=== PATIENT | male | born 1985 | race Caucasian/White ===

== ENCOUNTER 2022-03-29 14:10 | Emergency (ER) | payer OTHER, SELFPAY ==
[2022-03-29 14:12] VITALS: BP 131/76; PULSE 86; RESP 16; TEMP 36.3; O2SAT 98
--- NOTE | 2022-03-29 15:48 | ED.GENADULT ---
HPI - General Adult General Chief complaint: Eye Problems Stated complaint: foreign body in right eye Time Seen by Provider: 03/29/22 14:35 History of Present Illness HPI narrative: this is a 37-year-old male presenting to ED with eye irritation. Patient was scraping on his barbecue grill earlier today and afterwards used a leaf blower to clean out his garage. While he was using a leaf blower he felt something enter his right eye. Since then he has had some irritation. He sees a foreign body in the mirror. He denies any pain. Related Data Allergies Allergy/AdvReac Type Severity Reaction Status Date / Time peanut Allergy Severe Rash Verified 03/29/22 14:11 Review of Systems Review of Systems: CONSTITUTIONAL: Denies night sweats. EYES: No eye pain ENT: Denies rhinorrhea CARDIOVASCULAR: Denies palpitations RESPIRATORY: Denies hemoptysis GASTROINTESTINAL: Denies hematemesis GENITOURINARY: Denies hematuria. SKIN: Denies rash MUSCULOSKELETAL: Denies myalgia. NEUROLOGIC: Denies weakness. PSYCHIATRIC: Denies delusions [facility] Social History Social History Smoking status: Never smoker Alcohol intake: current Exam Narrative: APPEARANCE: No apparent distress. Head atraumatic. EYES: PERRLA/EOMI, Right eye has a small foreign body at 11:00 a.m. from the pupil. No visible rust ring. NOSE: Normal no drainage NECK: Supple, Trachea midline RESPIRATORY: CTAB, No increased work of breathing. CARDIOVASCULAR: S1S2 appreciated ABDOMINAL: Soft, nontender, nondistended, MUSCULOSKELETAl: No obvious deformities NEURO: Alert. Moving 4/4 extremities SKIN:: Warm, dry. Normal color PSYCHIATRIC: Normal affect Course Vital Signs Vital signs: Vital Signs Temperature 97.4 F L 03/29/22 14:12 Pulse Rate 86 03/29/22 14:12 Respiratory Rate 16 03/29/22 14:12 Blood Pressure 131/76 03/29/22 14:12 Pulse Oximetry 98 03/29/22 14:12 Oxygen Delivery Room Air 03/29/22 14:12 Temperature 97.4 F L 03/29/22 14:12 Pulse Rate 86 03/29/22 14:12 Respiratory Rate 16 03/29/22 14:12 Blood Pressure 131/76 03/29/22 14:12 Pulse Oximetry 98 03/29/22 14:12 Oxygen Delivery Room Air 03/29/22 14:12 Procedures FB Removal Eye Foreign Body #1: Foreign Body Removal Time: 15:50 Time Out performed: Yes Location: eye (R) Topical anesthetic used: tetracaine Foreign body: metal Evidence of corneal penetration: No Technique: cotton tip swab and needle Post-procedure medication: ophthalmic antibiotic and topical anesthetic Patient tolerated procedure: well and no complications Medical Decision Making MDM Narrative Medical decision making narrative: this is a 37-year-old male presenting ED with a foreign body in his right eye. Tetracaine was applied in the foreign body was removed via 18 gauge needle. Patient will be given Monclova for pain control. Given prescriptions for Motrin, Tylenol and Ocuflox. Patient has been instructed to follow up with [facility] in 48 hours. Vital Signs Vital Signs: Vital Signs Temperature 97.4 F L 03/29/22 14:12 Pulse Rate 86 03/29/22 14:12 Respiratory Rate 16 03/29/22 14:12 Blood Pressure 131/76 03/29/22 14:12 Pulse Oximetry 98 03/29/22 14:12 Oxygen Delivery Room Air 03/29/22 14:12 Temperature 97.4 F L 03/29/22 14:12 Pulse Rate 86 03/29/22 14:12 Respiratory Rate 16 03/29/22 14:12 Blood Pressure 131/76 03/29/22 14:12 Pulse Oximetry 98 03/29/22 14:12 Oxygen Delivery Room Air 03/29/22 14:12 Discharge Plan Discharge Clinical Impression: Foreign body in eye, Corneal abrasion, Eye irritation Patient Disposition: Home, Self-Care Condition: Stable Instructions: Antibiotic Form, Corneal Abrasion (DC) Additional Instructions: Please take Motrin Tylenol for pain control. Please use the eyedrops q.6 hours x5
[2022-03-29] MEDS: HYDROcodone/acetaminophen (*CRX) 5-325 MG TABLET 1 TAB PO (16:45)
== END 2022-03-29 16:57 | disposition home or self-care (01) ==
PROVIDERS: Emergency Provider Emergency Medicine
DX: T15.01XA Foreign body in cornea, right eye, initial encounter (principal)
CPT/HCPCS: 65220; 99283; A9270

== ENCOUNTER 2023-09-29 11:06 | Emergency (ER) | payer SELFPAY ==
--- NOTE | ~2023-09-29 | XR_ITS ---
EXAMINATION: XR forearm RT 2V DATE: 09/29/2023 12:57 INDICATION: Laceration due to glass at the radial side of the right forearm. Assess for foreign body. TECHNIQUE: AP an lateral views of the right forearm were obtained. COMPARISON: none FINDINGS: Bone alignment is normal. 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 No acute fracture . Normal joint spaces at the elbow, wrist and visualized hand. There is mild soft tissue swelling samy ng the radial aspect of the distal right forearm. There appears be some bandaging material overlying the ulnar side of the mid forearm with tiny focus of underlying soft tissue gas likely related to rep orted laceration injury. No evident radiopaque foreign bodies. IMPRESSION: 1. No acute osseous or mild or radiopaque foreign bodies. Reviewed, dictated and finalized at location A.
[2023-09-29 11:13] VITALS: BP 132/86; PULSE 72; RESP 15; TEMP 36.8; O2SAT 98
--- NOTE | 2023-09-29 12:41 | ED.GENADULT ---
HPI - General Adult General Chief complaint: Wound/Laceration Stated complaint: puncture wound to R FA Time Seen by Provider: 09/29/23 12:05 History of Present Illness HPI narrative: 38-year-old male presenting emergency department for evaluation of a laceration to his right forearm. Patient was working on removing a window when and a shard of glass stabbed him in the right forearm. Patient's tetanus was not up-to-date. Related Data Allergies Allergy/AdvReac Type Severity Reaction Status Date / Time peanut Allergy Severe Rash Verified 09/29/23 11:15 Review of Systems Review of Systems: All systems reviewed & are unremarkable except as noted in HPI and below PMFSH Social History Social History Smoking status: Never smoker Alcohol intake: current Exam Narrative: APPEARANCE: Well appearing, no pain, no distress, well-nourished. HEAD: normocephalic, atraumatic. EYES: PERRLA/EOMI, conjunctivae clear. NOSE: Normal no drainage NECK: Supple. No adenopathy, no masses. RESPIRATORY: Airway patent, respirations nonlabored. Clear to auscultation bilaterally, no rales, rhonchi, wheezing. CARDIOVASCULAR: Regular rate and rhythm without murmurs rubs or gallops. ABDOMINAL: Soft, nontender, nondistended, normal bowel sounds MUSCULOSKELETAL: Moves all extremities. Strength/ROM intact, No edema, No calf tenderness. NEURO: Alert. Cranial nerves II through XII intact. Good gait. Good coordination SKIN: Laceration to right forearm Course Course Emergency Course: Laceration was repaired and patient was discharged home. Patient was started on Keflex in the ED and for home Vital Signs Vital signs: Vital Signs Temperature 98.2 F 09/29/23 11:13 Pulse Rate 72 09/29/23 11:13 Respiratory Rate 15 09/29/23 11:13 Blood Pressure 132/86 09/29/23 11:13 Pulse Oximetry 98 09/29/23 11:13 Oxygen Delivery Room Air 09/29/23 11:13 Temperature 98.2 F 09/29/23 11:13 Pulse Rate 70 09/29/23 13:50 Respiratory Rate 16 09/29/23 13:50 Blood Pressure 124/74 09/29/23 13:50 Pulse Oximetry 100 09/29/23 13:50 Oxygen Delivery Room Air 09/29/23 11:13 Procedures Laceration Laceration 1: Site: upper extremity Side (If applicable): right Size (cm): 3 Description: linear and irregular Depth: simple, single layer Local Anesthetic: lidocaine 1% and with epi Amount of anesthesia used (mL): 3 Pre-repair: wound explored, irrigated, irrigated extensively and minor debridement ====== Skin Level ====== Size (cm): 5-0 Number of sutures: 3 Technique: simple, interrupted ====== Subcutaneous Layer ====== ====== Muscle Layer ====== ====== Tendon Layer ====== Medical Decision Making MDM Narrative Medical decision making narrative: 38-year-old male presenting to the emergency department for evaluation of a laceration to his right arm. Laceration was repaired as described in the procedure note. X-ray of the right forearm showed no glass or foreign bodies. Laceration was repaired as described in the procedure note. Differential Diagnosis Differential Diagnosis: Laceration, nerve damage, arterial damage, venous damage, hematoma, laceration, foreign body Vital Signs Vital Signs: Vital Signs Temperature 98.2 F 09/29/23 11:13 Pulse Rate 72 09/29/23 11:13 Respiratory Rate 15 09/29/23 11:13 Blood Pressure 132/86 09/29/23 11:13 Pulse Oximetry 98 09/29/23 11:13 Oxygen Delivery Room Air 09/29/23 11:13 Temperature 98.2 F 09/29/23 11:13 Pulse Rate 70 09/29/23 13:50 Respiratory Rate 16 09/29/23 13:50 Blood Pressure 124/74 09/29/23 13:50 Pulse Oximetry 100 09/29/23 13:50 Oxygen Delivery Room Air 09/29/23 11:13 Discharge Plan Discharge Clinical Impression: Laceration Patient Disposition: Home, Self-Care Condition: Stab
[2023-09-29] MEDS: LIDO 1%/EPINEPHRINE 1:100,000 20 ML VIAL INFILTRATE (12:48)
[2023-09-29] MEDS: TETANUS,DIPHTHERIA,AC PERTUSSIS ADULT (0.5 ML) BOOSTRIX IM (12:48)
[2023-09-29] MEDS: CEPHALEXIN 500 MG CAPSULE PO (13:46)
[2023-09-29 13:50] VITALS: BP 124/74; PULSE 70; RESP 16; O2SAT 100
== END 2023-09-29 13:51 | disposition home or self-care (01) ==
PROVIDERS: Emergency Provider Emergency Medicine; Referring Provider Emergency Medicine
DX: S51.811A Laceration without foreign body of right forearm, initial encounter (principal); Z23 Encounter for immunization; W25.XXXA Contact with sharp glass, initial encounter
CPT/HCPCS: 12002; 73090; 90471; 90715; 99283; A9270